=== PATIENT | female | born 1960 | race Two or more races ===

== ENCOUNTER 2016-11-26 02:47 | Emergency (ER) | payer SELFPAY ==
[~2016-11-26] VITALS: Ht 154.9 cm; Wt 55.0 kg
[2016-11-26] MEDS ORDERED: SODIUM CHLORIDE FLUSH 10ML SYR IVF ONE (03:00)
[2016-11-26] MEDS ORDERED: MORPHINE SULFATE 4 MG/ML, 1ML IVPush PRN (03:00)
[2016-11-26] MEDS ORDERED: SODIUM CHLORIDE 0.9% 1,000ML IVBOLUS ONE (03:00)
[2016-11-26] MEDS ORDERED: ONDANSETRON 2MG/ML, 2ML IVPush ONE (03:00)
[2016-11-26 03:20] LABS: HEMATOCRIT 43.8 % (34.6-47.8)
[2016-11-26 03:23] LABS: BLOOD UREA NITROGEN 20 mg/dL (7-18)
[2016-11-26 03:27] LABS: IS PT STATUS REG ER OR PRE ER? YES
[2016-11-26 03:46] VITALS: BP 130/82
[2016-11-26] MEDS ORDERED: MORPHINE SULFATE 4 MG/ML, 1ML ONE (04:23)
[2016-11-26] MEDS ORDERED: ONDANSETRON 2MG/ML, 2ML ONE (04:23)
[2016-11-26] MEDS ORDERED: HYDROcodone/APAP 5/325 TABLET ONE (04:38)
[2016-11-26] MEDS ORDERED: HYDROcodone/APAP 5/325 TABLET PO ONE (05:00)
== END 2016-11-26 05:04 | disposition home or self-care (01) ==
LOC: ED 04:41
DX: R55 Syncope and collapse (principal); G43.C0 Periodic headache syndromes in child or adult, not intractable; F17.200 Nicotine dependence, unspecified, uncomplicated
CPT/HCPCS: 36415; 70450; 71010; 80048; 80307; 82040; 84484; 85025; 93005; 96361; 96374; 99285; J2405; J7030; G0479